=== PATIENT | male | born 1985 | race Caucasian/White ===

== ENCOUNTER 2020-01-10 12:27 | Emergency (ER) | payer OTHER, SELFPAY ==
[2020-01-10 12:49] VITALS: BP 129/86; PULSE 93; RESP 18; TEMP 36.2; O2SAT 98
--- NOTE | 2020-01-10 16:24 | ED.WOUNDLAC ---
HPI - Wound/Laceration General Chief Complaint: Wound/Laceration Stated Complaint: leg laceration Time Seen by Provider: 01/10/20 14:28 Source: patient Mode of arrival: ambulatory Limitations: no limitations History of Present Illness HPI narrative: Patient presents with chief complaint of laceration to the anterior aspect of his right thigh that he sustained via a tree branch while working. He states that he bleeding minimally and is not very painful. Patient states that he does not want sutures. Patient states that he has had a Tdap within the last 5 years. Patient denies any changes to range of motion or any other injuries. Related Data Home Medications Medication Instructions Recorded Confirmed No Home Medications 01/10/20 01/10/20 Allergies Allergy/AdvReac Type Severity Reaction Status Date / Time codeine Allergy Rash Verified 01/10/20 14:30 Sulfa (Sulfonamide Allergy Rash Verified 01/10/20 14:30 Antibiotics) Review of Systems Review of Systems: Narrative: CONSTITUTIONAL: Denies fever, chills, or sweats. EYES: Denies visual changes, redness, or discharge. ENT: Denies rhinorrhea, congestion, sore throat, or otalgia. CARDIOVASCULAR: Denies chest pain, palpitations, or edema. RESPIRATORY: Denies cough or dyspnea. GASTROINTESTINAL: Denies abdominal pain, nausea, vomiting, or diarrhea. GENITOURINARY: Denies dysuria or hematuria. SKIN: Reports laceration denies rash or itching. MUSCULOSKELETAL: Denies back pain, joint pain, or myalgia. NEUROLOGIC: Denies headache, numbness, dizziness, or weakness. PSYCHIATRIC: Denies anxiety or depression. Exam Narrative: Exam Narrative: GENERAL: Well-appearing, well-nourished, and in no acute distress. HEAD: Normocephalic, atraumatic. EYES: PERRLA and EOMI. NECK: Supple. No adenopathy or masses. CHEST: Clear to auscultation. No respiratory distress. No wheezes rales or rhonchi HEART: Regular rate and rhythm. Normal peripheral pulses. EXTREMITIES: No foreign bodies noted. normal range of motion. No edema. SKIN: 2 cm nonbleeding Laceration to the aspect of right thigh. Warm, dry, no rash. NEURO: No focal deficits. Alert and oriented x3. PSYCH: Normal mood and affect. Course Vital Signs Vital signs: Vital Signs Temperature 97.2 F L 01/10/20 12:49 Pulse Rate 93 01/10/20 12:49 Respiratory Rate 18 01/10/20 12:49 Blood Pressure 129/86 01/10/20 12:49 Pulse Oximetry 98 01/10/20 12:49 Temperature 97.2 F L 01/10/20 12:49 Pulse Rate 93 01/10/20 12:49 Respiratory Rate 18 01/10/20 12:49 Blood Pressure 129/86 01/10/20 12:49 Pulse Oximetry 98 01/10/20 12:49 Procedures Laceration Laceration 1: Site: lower extremity Side (If applicable): right Size (cm): 2 Description: linear Depth: simple, single layer Pre-repair: irrigated extensively ====== Skin Level ====== Skin layer closed with: dermabond and steri strips ====== Subcutaneous Layer ====== ====== Muscle Layer ====== ====== Tendon Layer ====== Dressing: patient refused sutures despite recommendation. Used steristrips and dermabond to approximate and stressed that patient avoid putting tension on the wound to avoid gapping. wound care instructions given. Discharge Plan Discharge Clinical Impression: Laceration Patient Disposition: Home, Self-Care Condition: Improved Instructions: Antibiotic Form, Laceration (ED), Skin Adhesive Care (ED) Additional Instructions: Keep area clean. Avoid putting tension on the wound site. Follow-up with primary care for reevaluation in approximately 1 week, sooner if any signs of infection present or you have any questions or concerns. Return to emergency department if you have any emergent symptoms. Prescriptions: No Action No Home Medications RF: 0 Follow-up/Referrals: PHYSICIAN,CHIEF CONTROLLER TOWER [Primary Care Provider] - Stand Alone Forms: Work/[employer]
[2020-01-10 17:01] VITALS: BP 130/84; PULSE 92; RESP 18; O2SAT 98
== END 2020-01-10 17:03 | disposition home or self-care (01) ==
PROVIDERS: Emergency Provider Emergency Medicine; Referring Provider Internal Medicine
DX: S71.111A Laceration without foreign body, right thigh, initial encounter (principal); W26.8XXA Contact with other sharp object(s), not elsewhere classified, initial encounter
CPT/HCPCS: 12001; 99282

== ENCOUNTER → 2020-05-11 02:24 | Outpatient (CLI) | payer BC, SELFPAY ==
[2020-05-11 19:28] LABS: SARS-CoV-2 RNA PCR Negative
== END ==
PROVIDERS: Visit Provider Surgery
DX: Z01.812 Encounter for preprocedural laboratory examination (principal); Z20.822 Contact with and (suspected) exposure to COVID-19
CPT/HCPCS: C9803; U0003; U0005

== ENCOUNTER 2020-05-14 02:08 | Day surgery (SDC) | payer BC, SELFPAY ==
[2020-05-02 11:14] VITALS: BMI 28.1
[2020-05-14 12:25] VITALS: BMI 28.7
[2020-05-14] MEDS: LACTATED RINGERS 1,000 ML 150 ML IV CONT (12:36)
--- NOTE | 2020-05-14 13:11 | WPDANESEPPF ---
Anes - Initial Pre Proc Eval Procedure: Operation Date: 05/14/20 14:00 Proposed Procedures p Esophagogastroduodenoscopy - Jesse Amaya DO Date/Time: 05/14/20 13:11 Surgeon: Jesse Amaya DO Pre Op Diagnosis: nausea, heartburn Patient Data Age: 34 Gender: M Height: 5 ft 8 in Weight: 85.6 kg Allergies Allergy/AdvReac Type Severity Reaction Status Date / Time codeine Allergy Intermediate Rash Verified 05/14/20 12:24 Sulfa (Sulfonamide Allergy Intermediate Rash Verified 05/14/20 12:24 Antibiotics) Home Medications Medication Instructions Recorded Confirmed Type No Home Medications 01/10/20 05/14/20 History Patient hx anesthesia problems: none Family hx anesthesia problems: none PMFSH Past Medical History Medical History (Updated 05/14/20 @ 13:08 by Mario Pugh MD) Epigastric abdominal pain GERD (gastroesophageal reflux disease) Surgical History Surgical History History of colonoscopy Family History Family History Grandparent Cancer Social History Social History Smoking status: Never smoker Alcohol intake: never Substance use: never Substance use type: does not use Living arrangements: with family Additional occupation/education comments: [employer] Gender identity (if verbalized by the patient): Male Spiritual care concerns: No Anes - Eval Final PreProcedure Day of Procedure 05/14/20 13:11 Patient weight: normal Heart: regular rate and rhythm Lungs: clear to auscultation Airway: Mallampati scale class II Neurological: alert and oriented Last oral intake: >/= 8 hours ASA classification: II Emergent: no Anesthetic plan: proceed Anesthesia type and monitoring: general GIVS and standard monitoring Informed Consent: The patient's anesthetic plan and its attendant risks and benefits were discussed with the patient/family/POA. Questions were solicited and answers provided to the satisfaction of the patient/family/POA.
--- NOTE | 2020-05-14 13:29 | WPDHPUPDATE1 ---
History and Physical Update Update Date/Time: 05/14/20 13:29 History and Physical has been reviewed, including an updated exam of the patient. There are NO changes in the patient's condition. Risks, benefits, and alternatives have been discussed and questions answered. Patient agrees to proceed with procedure.
[2020-05-14 13:49] VITALS: BP 97/51; PULSE 79; RESP 21; O2SAT 97
[2020-05-14 13:59] VITALS: BP 98/73; PULSE 72; RESP 19; O2SAT 96
[2020-05-14 14:09] VITALS: BP 108/81; PULSE 70; RESP 19; O2SAT 98
== END 2020-05-14 14:20 | disposition home or self-care (01) ==
PROVIDERS: Visit Provider Surgery
PROC: 0DJ08ZZ Inspection of Upper Intestinal Tract, Via Natural or Artificial Opening Endoscopic (ICD-10-PCS; CPT 43235; principal; 2020-05-14 14:00)
DX: K20.90 Esophagitis, unspecified without bleeding (principal); K25.3 Acute gastric ulcer without hemorrhage or perforation; K29.50 Unspecified chronic gastritis without bleeding; R11.0 Nausea; K62.89 Other specified diseases of anus and rectum
CPT/HCPCS: 43239; 87081; 88305; J2001; J2704; J7120

== ENCOUNTER 2022-12-29 06:56 | Emergency (ER) | payer BC, SELFPAY ==
--- NOTE | ~2022-12-29 | CT_ITS ---
CT of the Abdomen and Pelvis: Indication: Abdominal pain Technique: 2.5 mm axial scans were obtained through the abdomen and pelvis following intravenous adm inistration of 100 cc of Omnipaque 350. Dose reduction technique was used on this scan by utilizing a utomated exposure control and iterative reconstruction technique. The dose-length product (DLP) was 5 77.26 mGy-cm. Findings: Scans through the lung bases are unremarkable. The liver, spleen, pancreas, gallbladder, adrenals and kidneys are within normal limits. No evidence of aortic aneurysm. No lymphadenopathy. There is wall thickening of the mid sigmoid colon with inflammatory change centered around a divertic ulum, consistent with acute diverticulitis. No abscess or definite free air. No bowel obstruction. Sm all fat-containing umbilical hernia present. Normal appendix. Images through the pelvis were performed. Urinary bladder unremarkable. Prostate gland and seminal ve sicles are unremarkable. No ascites. Impression: Acute sigmoid diverticulitis, as detailed above. No definite abscess or free air. Small fat-containing umbilical hernia. Reviewed, dictated and finalized at location . [employer] Impression: Acute sigmoid diverticulitis, as detailed above. No definite abscess or free ai r. Small fat-containing umbilical hernia.
[2022-12-29 07:17] VITALS: BP 122/79; PULSE 90; RESP 16; O2SAT 97
--- NOTE | 2022-12-29 07:25 | ED.ABDPAIN ---
HPI - Abdominal Pain General Chief Complaint: Abdominal Pain Stated Complaint: Lower abd pain Time Seen by Provider: 12/29/22 07:09 History of Present Illness HPI narrative: Patient is a 37-year-old male who presents ER with left lower quadrant abdominal pain ongoing for the last 3 days. Aching in nature. Feels like he has to have a bowel movement but has not been able to. Mild nausea with one mucus-like emesis. He began having fevers last night. Has not had symptoms like this previously. No urinary symptoms. No alleviating factors. Related Data Allergies Allergy/AdvReac Type Severity Reaction Status Date / Time codeine Allergy Intermediate Rash Verified 12/29/22 07:42 Sulfa (Sulfonamide Allergy Intermediate Rash Verified 12/29/22 07:42 Antibiotics) Review of Systems Review of Systems: All systems reviewed & are unremarkable except as noted in HPI and below Constitutional: Constitutional: Denies chills, Denies fatigue and Reports fever(s) Cardiovascular: Cardiovascular: Reports no additional cardiovascular complaints Respiratory: Respiratory: Reports no additional respiratory complaints Gastrointestinal: Gastrointestinal: Reports abdominal pain, Reports constipation, Denies diarrhea, Reports nausea and Reports vomiting Genitourinary: Genitourinary: Reports no additional male genitourinary complaints PMFSH Past Medical History Medical History Allergies Epigastric abdominal pain GERD (gastroesophageal reflux disease) History of stomach ulcers Surgical History Surgical History History of colonoscopy Family History Family History Grandparent Cancer Diabetes mellitus Hypertension Heart disease Father Alcoholism Hypertension Heart disease Depression Social History Social History Smoking status: Never smoker Alcohol intake: never Substance use: never Substance use type: does not use Living arrangements: with family Occupation/Education: occupation Additional occupation/education comments: [employer] Gender identity (if verbalized by the patient): Male Spiritual care concerns: No Exam Narrative: GENERAL: Well-appearing, well-nourished, and in no acute distress. HEAD: Normocephalic, atraumatic. ENT: Mucous membranes moist. CHEST: Clear to auscultation. No respiratory distress. HEART: Regular rate and rhythm. Normal peripheral pulses. ABDOMEN: Soft, tender palpation left lower quadrant without guarding, nondistended, normal active bowel sounds. EXTREMITIES: Normal range of motion. No edema. SKIN: Warm, dry, no rash. NEURO: Alert and oriented x3. PSYCH: Normal mood and affect. Course Course Emergency Course: Patient resting comfortably. Informed of results. Discharge home with oral antibiotics, pain control, and antinausea medication. Vital Signs Vital signs: Vital Signs Pulse Rate 90 12/29/22 07:17 Respiratory Rate 16 12/29/22 07:17 Blood Pressure 122/79 12/29/22 07:17 Pulse Oximetry 97 12/29/22 07:17 Pulse Rate 89 12/29/22 09:09 Respiratory Rate 23 H 12/29/22 09:09 Blood Pressure 104/79 12/29/22 09:09 Pulse Oximetry 96 12/29/22 09:09 MDM - Abdominal Pain Lab Data 12/29/22 07:19 12/29/22 07:19 Labs: Lab Results 12/29/22 12/29/22 Range/Units 07:19 07:40 WBC 11.2 H (4.5-10.0) K/mm3 RBC 5.10 (4.6-6.20) M/mm3 Hgb 14.6 (14.0-18.0) g/dL Hct 42.3 (42.0-52.0) % MCV 82.9 (80-100) fl MCH 28.6 (26-34) pg MCHC 34.5 (32-36) g/dl RDW 12.8 (11.5-14.5) % Plt Count 274 (150-375) k/mm3 MPV 9.4 (7.4-10.4) fl Immature Gran % (Auto) 0.3 (0-0.5) % Neut % (Auto) 79.3 H (45.5-73.1) % Lymph % (Auto) 11.5 L (18.3-44.2) % [place] % (Aut
[2022-12-29 07:26] LABS: Basophils Percent Auto 0.2 % (0.2-1.2); Eosinophils Absolute Auto 0.1 K/mm3 (0-0.3); Eosinophils Percent Auto 0.8 % (0-4.4); Hematocrit 42.3 % (42.0-52.0); Hemoglobin 14.6 g/dL (14.0-18.0); Immature Granulocyte Absolute 0.03 K/mm3 (0.00-0.031); Immature Granulocyte Percent A 0.3 % (0-0.5); Lymphocytes Absolute Auto 1.29 K/mm3 (0.9-3.2); Lymphocytes Percent Auto 11.5 % (18.3-44.2); Mean Corpuscular HGB Conc 34.5 g/dl (32-36); Mean Corpuscular Hemoglobin 28.6 pg (26-34); Mean Corpuscular Volume 82.9 fl (80-100); Mean Platelet Volume 9.4 fl (7.4-10.4); Monocytes Absolute Auto 0.9 K/mm3 (0.1-0.6); Monocytes Percent Auto 7.9 % (2.6-8.5); Neutrophils Absolute Auto 8.9 K/mm3 (1.3-6.7); Neutrophils Percent Auto 79.3 % (45.5-73.1); Platelet Count Result 274 k/mm3 (150-375); Red Cell Distribution Width 12.8 % (11.5-14.5); White Blood Count 11.2 K/mm3 (4.5-10.0)
[2022-12-29 07:35] LABS: Alanine Aminotransferase 40 U/L (6-50); Albumin Level 4.6 g/dL (3.5-5.1); Alkaline Phosphatase 99 U/L (38-126); Anion Gap 7 mmol/L (8-16); Aspartate Amino Transferase 32 U/L (17-59); Bilirubin,Total 1.3 mg/dL (0.2-1.3); Blood Urea Nitrogen 13 mg/dL (9-20); Calcium 9.3 mg/dL (8.4-10.2); Carbon Dioxide 28 mmol/L (22-30); Chloride 102 mmol/L (98-107); Estimated CRCL calculation 97 ml/min; Estimated Glomerular Filt Rate > 60; Glucose 108 mg/dL (65-110); Lipase 73 U/L (23-300); Potassium 3.8 mmol/L (3.4-5.0); Sodium 137 mmol/L (137-145)
[2022-12-29 07:41] VITALS: BP 119/82; PULSE 92; RESP 22; O2SAT 95
[2022-12-29 07:48] LABS: Appearance Urine Cloudy (Clear); Bacteria Urine None Seen /hpf; Bilirubin Urine 1+ (Negative); Blood Urine Trace (Negative); Color Urine Dark Yellow (Yellow); Glucose Urine UA Negative (Negative); Ketones Urine Trace mg/dL (Negative); Leukocyte Esterase Ur Trace LEU/UL (Negative); Nitrate Urine Negative (Negative); Non Pathogenic Casts 0-2; Protein Urine 1+ mg/dL (Negative); Specific Grav Ur 1.025 (1.001-1.035); Squamous Epithelial Cell Urine None seen /hpf (Few); WBC Urine 0-5 /hpf; pH Urine 5.5 (5.0-9.0)
[2022-12-29 07:52] LABS: Add Urine Microscopic? YES
[2022-12-29 08:33] VITALS: BP 113/81; PULSE 91; RESP 22; O2SAT 97
[2022-12-29 09:09] VITALS: BP 104/79; PULSE 89; RESP 23; O2SAT 96
[2022-12-29 09:40] VITALS: BP 109/77; PULSE 95; RESP 20; O2SAT 98
== END 2022-12-29 09:46 | disposition home or self-care (01) ==
PROVIDERS: Emergency Provider Emergency Medicine; PCP Internal Medicine
DX: K57.32 Diverticulitis of large intestine without perforation or abscess without bleeding (principal); K21.9 Gastro-esophageal reflux disease without esophagitis
CPT/HCPCS: 36415; 74177; 80053; 81001; 83690; 85025; 99284; Q9967

== ENCOUNTER 2023-06-18 11:23 | Emergency (ER) | payer BC, SELFPAY ==
[2023-06-18 11:26] VITALS: BP 128/79; PULSE 65; RESP 18; TEMP 36.6; O2SAT 98
--- NOTE | 2023-06-18 12:11 | ED.ABDPAIN ---
HPI - Abdominal Pain General Chief Complaint: Abdominal Pain Stated Complaint: diverticulitis Time Seen by Provider: 06/18/23 12:01 History of Present Illness HPI narrative: Patient is a 37-year-old male with history of diverticulitis here today with abdominal pain. He states that the abdominal pain began over the weekend about 4-5 days ago. The pain was located in his lower abdomen and mild, aching in nature. He notes he immediately was concerned that he could be having a recurrent diverticulitis flare and switched himself to clear liquid diet. Over the course of the last 4-5 days he took 2 doses of leftover Augmentin at his house. He notes the symptoms have completely resolved at this time. He contacted his PCP regarding this recent bout of symptoms and advised he come into the ER for evaluation. He denies fever, chills, nausea, vomiting, cough, congestion. He notes on day 2 of illness he had an episode of dark urine but has never experienced any dysuria, hematuria, increased urinary frequency. No prior history of UTI. He had 1 prior colonoscopy in his 20s, was diagnosed with IBS while he was in the . He is currently awaiting a repeat colonoscopy after his initial bout of diverticulitis at the end of last year. Related Data Allergies Allergy/AdvReac Type Severity Reaction Status Date / Time codeine Allergy Intermediate Rash Verified 06/18/23 11:58 Sulfa (Sulfonamide Allergy Intermediate Rash Verified 06/18/23 11:58 Antibiotics) Review of Systems Review of Systems: All systems reviewed & are unremarkable except as noted in HPI and below PMFSH Past Medical History Medical History Allergies Epigastric abdominal pain GERD (gastroesophageal reflux disease) History of stomach ulcers Surgical History Surgical History History of colonoscopy Family History Family History Grandparent Cancer Diabetes mellitus Hypertension Heart disease Father Alcoholism Hypertension Heart disease Depression Social History Social History Smoking status: Never smoker Alcohol intake: never Substance use: never Substance use type: does not use Living arrangements: with family Occupation/Education: occupation Additional occupation/education comments: [employer] Gender identity (if verbalized by the patient): Male Spiritual care concerns: No Exam Narrative: GENERAL: Well-appearing, well-nourished, and in no acute distress. HEAD: Normocephalic, atraumatic. EYES: PERRLA and EOMI. ENT: Nares clear. Mucous membranes moist. NECK: Supple. CHEST: Clear to auscultation. No respiratory distress. HEART: Regular rate and rhythm. Normal peripheral pulses. ABDOMEN: Soft, nontender, nondistended. Benign abdominal exam. No CVA tenderness. EXTREMITIES: Normal range of motion. No edema. SKIN: Warm, dry, no rash. NEURO: No focal deficits. Alert and oriented x3. PSYCH: Normal mood and affect. Course Course Emergency Course: Chart review performed. Patient here with abdominal pain since Thursday. History of prior diverticulitis, felt similar, started taking amoxicillin he had left and home and a clear liquid diet. Noted improving symptoms however PCP recommended he get checked out. Triage vitals normal. A CT scan on 12/29/22 showed acute sigmoid diverticulitis and he was discharged on Augmentin, Zofran and [place]. Patient seen evaluated, nontoxic appearing, no symptoms. WBC of 4.6, electrolytes within normal limits. Patient is having no urinary symptoms. He has no abdominal pain. At this point I think we can forego a urinalysis. Extensive discussion with patient regarding options for further workup. Given lack of pain and any symptom as wall as lack of evidence of infection on his lab work we dis
[2023-06-18 12:17] LABS: Basophils Percent Auto 0.4 % (0.2-1.2); Eosinophils Absolute Auto 0.2 K/mm3 (0-0.3); Eosinophils Percent Auto 4.6 % (0-4.4); Hematocrit 45.5 % (42.0-52.0); Hemoglobin 15.7 g/dL (14.0-18.0); Immature Granulocyte Absolute 0.02 K/mm3 (0.00-0.031); Immature Granulocyte Percent A 0.4 % (0-0.5); Lymphocytes Absolute Auto 1.35 K/mm3 (0.9-3.2); Lymphocytes Percent Auto 29.4 % (18.3-44.2); Mean Corpuscular HGB Conc 34.5 g/dl (32-36); Mean Corpuscular Hemoglobin 28.7 pg (26-34); Mean Corpuscular Volume 83.2 fl (80-100); Mean Platelet Volume 9.4 fl (7.4-10.4); Monocytes Absolute Auto 0.3 K/mm3 (0.1-0.6); Monocytes Percent Auto 6.3 % (2.6-8.5); Neutrophils Absolute Auto 2.7 K/mm3 (1.3-6.7); Neutrophils Percent Auto 58.9 % (45.5-73.1); Platelet Count Result 284 k/mm3 (150-375); Red Blood Count 5.47 M/mm3 (4.6-6.20); Red Cell Distribution Width 12.6 % (11.5-14.5); White Blood Count 4.6 K/mm3 (4.5-10.0)
[2023-06-18 12:25] LABS: Alanine Aminotransferase 40 U/L (6-50); Albumin Level 5.1 g/dL (3.5-5.1); Alkaline Phosphatase 79 U/L (38-126); Anion Gap 7 mmol/L (4-12); Aspartate Amino Transferase 33 U/L (17-59); Bilirubin,Total 0.8 mg/dL (0.2-1.3); Blood Urea Nitrogen 13 mg/dL (9-20); Calcium 9.7 mg/dL (8.4-10.2); Carbon Dioxide 29 mmol/L (22-30); Chloride 103 mmol/L (98-107); Estimated CRCL calculation 109 ml/min; Estimated Glomerular Filt Rate > 60; Glucose 96 mg/dL (65-110); Lipase 107 U/L (23-300); Potassium 4.3 mmol/L (3.4-5.0); Sodium 139 mmol/L (137-145)
[2023-06-18 12:30] VITALS: BP 105/80; PULSE 60; RESP 17; O2SAT 97
[2023-06-18 13:32] VITALS: BP 101/82; PULSE 65; RESP 17; TEMP 36.5; O2SAT 100
== END 2023-06-18 13:15 | disposition home or self-care (01) ==
PROVIDERS: Student in an Organized Health Care Education/Training Program; Emergency Provider Student in an Organized Health Care Education/Training Program; PCP Internal Medicine
DX: R10.30 Lower abdominal pain, unspecified (principal); K21.9 Gastro-esophageal reflux disease without esophagitis
CPT/HCPCS: 36415; 80053; 83690; 85025; 99283

== ENCOUNTER 2023-09-09 05:25 | Emergency (ER) | payer OTHER, SELFPAY ==
--- NOTE | ~2023-09-09 | CT_ITS ---
CT of the Abdomen and Pelvis: Indication: Abdominal pain Technique: 2.5 mm axial scans were obtained through the abdomen and pelvis following intravenous adm inistration of 100 cc of Omnipaque 350. Dose reduction technique was used on this scan by utilizing a utomated exposure control and iterative reconstruction technique. The dose-length product (DLP) was 7 55.43 mGy-cm. COMPARISON: 12/29/2022 Findings: Scans through the lung bases are unremarkable. The liver, spleen, pancreas, gallbladder, adrenals and kidneys are within normal limits. No evidence of aortic aneurysm. No lymphadenopathy. There is wall thickening and pericolonic inflammatory change at the proximal sigmoid: Compatible with acute diverticulitis. No abscess or definite free air is seen. No bowel obstruction.. Small fat-cont aining umbilical hernia noted. Images through the pelvis were performed. Urinary bladder unremarkable. No pelvic mass seen. No ascit es. Impression: Acute sigmoid diverticulitis, as detailed above. Small fat-containing umbilical hernia. Reviewed, dictated and finalized at location . Impression: Acute sigmoid diverticulitis, as detailed above. Small fat-containing umbilical hernia.
[2023-09-09 05:26] VITALS: BP 132/83; PULSE 106; RESP 15; TEMP 37; O2SAT 99
[2023-09-09 05:53] VITALS: BP 128/91; PULSE 95; RESP 17; O2SAT 97
[2023-09-09 06:06] LABS: Basophils Percent Auto 0.2 % (0.2-1.2); Eosinophils Absolute Auto 0.1 K/mm3 (0-0.3); Eosinophils Percent Auto 0.8 % (0-4.4); Hematocrit 40.2 % (42.0-52.0); Hemoglobin 14.3 g/dL (14.0-18.0); Immature Granulocyte Absolute 0.04 K/mm3 (0.00-0.031); Immature Granulocyte Percent A 0.4 % (0-0.5); Lymphocytes Absolute Auto 1.12 K/mm3 (0.9-3.2); Lymphocytes Percent Auto 10.2 % (18.3-44.2); Mean Corpuscular HGB Conc 35.6 g/dl (32-36); Mean Corpuscular Volume 81.5 fl (80-100); Mean Platelet Volume 9.5 fl (7.4-10.4); Monocytes Absolute Auto 0.9 K/mm3 (0.1-0.6); Monocytes Percent Auto 8.5 % (2.6-8.5); Neutrophils Absolute Auto 8.7 K/mm3 (1.3-6.7); Neutrophils Percent Auto 79.9 % (45.5-73.1); Platelet Count Result 259 k/mm3 (150-375); Red Blood Count 4.93 M/mm3 (4.6-6.20); Red Cell Distribution Width 12.5 % (11.5-14.5); White Blood Count 10.9 K/mm3 (4.5-10.0)
[2023-09-09 06:15] LABS: Alanine Aminotransferase 40 U/L (6-50); Albumin Level 4.8 g/dL (3.5-5.1); Alkaline Phosphatase 101 U/L (38-126); Anion Gap 11 mmol/L (4-12); Aspartate Amino Transferase 28 U/L (17-59); Bilirubin,Total 1.6 mg/dL (0.2-1.3); Blood Urea Nitrogen 12 mg/dL (9-20); Calcium 9.4 mg/dL (8.4-10.2); Carbon Dioxide 26 mmol/L (22-30); Chloride 100 mmol/L (98-107); Estimated CRCL calculation 94 ml/min; Estimated Glomerular Filt Rate > 60; Glucose 113 mg/dL (65-110); Lipase 73 U/L (23-300); Potassium 3.8 mmol/L (3.4-5.0); Sodium 137 mmol/L (137-145)
[2023-09-09 07:04] LABS: Appearance Urine Clear (Clear); Bacteria Urine None Seen /hpf; Bilirubin Urine Negative (Negative); Blood Urine Negative (Negative); Color Urine Dark Yellow (Yellow); Glucose Urine UA Negative (Negative); Ketones Urine Negative (Negative); Leukocyte Esterase Ur Negative LEU/UL (Negative); Nitrate Urine Negative (Negative); Non Pathogenic Casts 0-2; Protein Urine Trace mg/dL (Negative); RBC Urine 0-2 /hpf (0-2); Specific Grav Ur 1.024 (1.001-1.035); Squamous Epithelial Cell Urine None Seen /hpf (Few); Urobilinogen Urine 0.2 mg/dL (<2.0); WBC Urine 0-5 /hpf (0-3); pH Urine 5.5 (5.0-9.0)
[2023-09-09 07:16] LABS: Add Urine Microscopic? YES
[2023-09-09] MEDS: SODIUM CHLORIDE 0.9% IV 2,000 ML 999 ML IV CONT (08:08)
[2023-09-09] MEDS: ONDANSETRON INJ 4 MG/2 ML VIAL IV PUSH (08:08)
[2023-09-09] MEDS: KETOROLAC 15 MG/ML VIAL (*BKC) IV PUSH (08:08)
[2023-09-09 09:43] VITALS: BP 105/73; PULSE 78; RESP 18; O2SAT 95
--- NOTE | 2023-09-09 09:43 | ED.GENADULT ---
HPI - General Adult General Chief complaint: Abdominal Pain Stated complaint: abd pain Time Seen by Provider: 09/09/23 06:42 History of Present Illness HPI narrative: This is a 29-year-old male with a history of diverticulitis presenting for abdominal pain. Pain started 1 day ago and is in the left lower quadrant. It is achy and sharp. Is severe in intensity and waxes and wanes throughout the day. Says this feels similar to prior episodes of diverticulitis. No exacerbating alleviating factors. He has had nausea but no vomiting. Denies fevers chills chest pain difficulty breathing or urinary symptoms. Last bowel movement was yesterday and was thinner in caliber. Patient has a history of IBS. Related Data Allergies Allergy/AdvReac Type Severity Reaction Status Date / Time codeine Allergy Intermediate Rash Verified 06/18/23 11:58 Sulfa (Sulfonamide Allergy Intermediate Rash Verified 06/18/23 11:58 Antibiotics) PMFSH Past Medical History Medical History Allergies Epigastric abdominal pain GERD (gastroesophageal reflux disease) History of stomach ulcers Surgical History Surgical History History of colonoscopy Family History Family History Grandparent Cancer Diabetes mellitus Hypertension Heart disease Father Alcoholism Hypertension Heart disease Depression Social History Social History Smoking status: Never smoker Alcohol intake: never Substance use: never Substance use type: does not use Living arrangements: with family Occupation/Education: occupation Additional occupation/education comments: [employer] Gender identity (if verbalized by the patient): Male Spiritual care concerns: No Exam Narrative: APPEARANCE: No apparent distress. Head: atraumatic. EYES: EOMI, NOSE: Atraumatic NECK: Trachea midline RESPIRATORY: No increased rate of breathing CARDIOVASCULAR: RRR, ABDOMINAL: Tender left lower quadrant, no rigidity or voluntary guarding MUSCULOSKELETAl: No obvious deformities NEURO: Alert. Moving 4/4 extremities SKIN:: Warm, dry. Normal color PSYCHIATRIC: Normal affect Course Vital Signs Vital signs: Vital Signs Temperature 98.6 F 09/09/23 05:26 Pulse Rate 106 H 09/09/23 05:26 Respiratory Rate 15 09/09/23 05:26 Blood Pressure 132/83 09/09/23 05:26 Pulse Oximetry 99 09/09/23 05:26 Oxygen Delivery Room Air 09/09/23 05:26 Temperature 98.6 F 09/09/23 05:26 Pulse Rate 95 09/09/23 05:53 Respiratory Rate 17 09/09/23 05:53 Blood Pressure 128/91 H 09/09/23 05:53 Pulse Oximetry 97 09/09/23 05:53 Oxygen Delivery Room Air 09/09/23 05:26 Medical Decision Making MDM Narrative Medical decision making narrative: -Course: 29-year-old male presenting with left lower quadrant pain. CT showed acute uncomplicated diverticulitis. Patient has stable vital signs. White count 10.9. Patient has good candidate for outpatient management. He will be discharged on Augmentin, pain control and antiemetics. Given primary care follow-up return precautions. -DDX includes but is not limited to: Diverticulitis, colitis, gastroenteritis -Co-morbidities complicating care: History of diverticulitis -Independent interpretation of studies: Labs reviewed. Imaging reviewed -Interventions: 2 L normal saline, 15 mg Toradol, 4 mg Zofran -Shared decision making / Disposition: Discharge -RX Augmentin, Zofran, Motrin, Tylenol Vital Signs Vital Signs: Vital Signs Temperature 98.6 F 09/09/23 05:26 Pulse Rate 106 H 09/09/23 05:26 Respiratory Rate 15 09/09/23 05:26 Blood Pressure 132/83 09/09/23 05:26 Pulse Oximetry 99 09/09/23 05:26 Oxygen Delivery Room Air 09/09/23 05:26 Temperature 98.6 F 09/09/23 05:26
== END 2023-09-09 09:56 | disposition home or self-care (01) ==
PROVIDERS: Emergency Medicine; Emergency Provider Emergency Medicine; PCP Internal Medicine
DX: K57.32 Diverticulitis of large intestine without perforation or abscess without bleeding (principal); K21.9 Gastro-esophageal reflux disease without esophagitis; K42.9 Umbilical hernia without obstruction or gangrene
CPT/HCPCS: 36415; 74177; 80053; 81001; 83690; 85025; 96361; 96374; 96375; 99284; J1885; J2405; J7030; Q9967

== ENCOUNTER 2024-11-07 07:52 | Outpatient (CLI) | payer OTHER, SELFPAY ==
--- NOTE | ~2024-11-07 | NM_ITS ---
EXAMINATION: [id number] DATE: 11/07/2024 12:17 INDICATION: Upper abdominal pain COMPARISON: None. TECHNIQUE: 4.9 mCi Tc-99m mebrofenin (Choletec) was administered intravenously. Scintigraphic images of the abdomen were obtained for one hour. 2 mcg sincalide (Kinevac) was administered by slow intravenous infusion, and imaging was continued for 30 minutes. Gallbladder ejection fraction was calculated by the technologist. FINDINGS: There is normal clearance of radiotracer from the blood pool. There is homogeneous tracer uptake by the liver. Activity progresses to the gallbladder and bowel. The gallbladder ejection fraction (GBEF) is 93% (normal 10-90%, but most patient with gallbladder dysfunction have GBEF < 35% which does overlap with the normal range). IMPRESSION: 1. 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 IMPRESSION: 1. 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
--- OUTSIDE RECORDS SUMMARY | 2024-11-07 08:17 | XMS_ITS | Clinical Summary ---
Author Organization [facility] Address [address] Attn: Epic Prelude ADT [place]ATH[place] [id number] Care Team Providers Care Associate Director Finance Name Role Phone Unavailable Primary Care Provider Unavailabl e Allergies Active Allergy Reactions Criticality Noted Date Comments Codeine Rash Low 07/02/2016 Sulfa (Sulfonamide Antibiotics) Rash Low 06/23 Medications fluticasone propionate (FLONASE) 50 mcg/spray [place], Suspension nasal inhaler Administer 2 Sprays in each nostril daily. 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 [employer] Gender Identity Not on file Sexual Orientation Not on file Last Filed Vital Signs Vital Sign Reading Time Taken Comments Blood Pressure 132/85 07/02/2016 8:23 PM CDT Pulse - - Temperature 37.2 C (98.9 F) 07/02/2016 8:23 PM CDT Respiratory Rate 20 07/02/2016 11:04 PM CDT Oxygen Saturation - - Inhaled Oxygen Concentration - - Weight 81.6 kg (180 lb) 07/02/2016 8:23 PM CDT Height 172.7 cm (5' 8) 07/02/2016 8:23 PM CDT Body Mass Index 27.37 07/02/2016 8:23 PM CDT Plan of Treatment Health Maintenance Due Date Last Done Comments DTAP/TDAP/TD VACCINES (1 - Tdap) 09/18/2003 HEPATITIS B VACCINES (1 of 3 - 19+ 3-dose series) 08/24 HPV VACCINES (1 - 3-dose SCDM series) 09/18/2011 INFLUENZA VACCINE (#1) 2024
--- OUTSIDE RECORDS SUMMARY | 2024-11-07 08:17 | XMS_ITS | Clinical Summary ---
Author Organization [facility] Address [address] [place] [address] Care Team Providers Care Senior Database Programmer Name Role Phone Laurence Forte MD Primary Care Provide r Allergies Active Allergy Reactions Criticality Noted Date Comments Codeine Rash Medium 07/02/2016 Sulfa (Sulfonamide Antibiotics) Rash,Anaphylaxis High 12/07/1989 Medications cetirizine (ZyrTEC) 10 mg tablet cetirizine 10 mg tablet TAKE 1 TABLET BY MOUTH EVERY DAY NEEDED Active fluticasone propionate (FLONASE) 50 mcg/actuation nasal spray fluticasone propionate 50 mcg/actuation nasal spray,suspension INHALE 1 SPRAY IN EACH NOSTRIL EVERY DAY 07/03/19 17 Active meloxicam (MOBIC) 15 mg tablet meloxicam 15 mg tablet TAKE 1 TABLET BY MOUTH EVERY DAY WITH FOOD NEEDED Active omeprazole (PriLOSEC) 20 mg capsule omeprazole 20 mg capsule,delayed release TAKE 1 CAPSULE BY MOUTH EVERY DAY NEEDED Active rosuvastatin (CRESTOR) 40 mg tablet rosuvastatin 40 mg tablet TAKE 1 TABLET BY MOUTH EVERY DAY Active topiramate (TOPAMAX) 50 mg tabletIndications: Chronic migraine without aura without status migrainosus, not intractable Take half tablet (25 mg) po twice a day for one week, then one tablet po twice a day 60 tablet 3 07/10/19 22 Active Additional Information Patient not taking.Reported on 01/01/2023 amoxicillin-clavul anate (AUGMENTIN) 875-125 mg per tablet Take 1 tablet by mouth every 12 (twelve) hours 12/30/19 23 Active HYDROcodone-acetam inophen (NORCO) 5-325 mg per tablet Take by mouth every 6 (six) hours as needed 12/30/19 23 Active ondansetron ODT (ZOFRAN-ODT) 4 mg disintegrating tablet DISSOLVE 1 TABLET ON THE TONGUE EVERY 6 HOURS NEEDED FOR NAUSEA OR VOMITING 12/30/19 Active amoxicillin 500 mg capsule TAKE 1 CAPSULE BY MOUTH THREE TIMES DAILY FOR 5 DAYS 01/06/20 23 Active propranolol LA (INDERAL LA) 60 mg 24 hr capsule Take 1 capsule (60 mg total) by mouth daily 90 capsule 3 04/02/19 24 Active Active Problems Problem Noted Date Diagnosed Date Migraine without aura and responsive to treatmen t 04/02/2023 Acute sinusitis 04/02/2023 Arthralgia of shoulder 04/02/2023 Migraine headache 04/02/2023 Visual impairment 04/02/2023 Non-neoplastic nevus 04/02/2023 Vitiligo 04/02/2023 Allergy 01/01/2023 Headache 01/01/2023 Overview (01/01/2023): headache: 27 y/o male with h/o migraines and cervicalgia p/w headache refractory to excedrin. Do not suspect SAH due to gradual onset, lack of maximal intensity at onset, similairity to prior HAs, and normal neurologic exam. Pt has no fever or meningismus concerning for meningitis. Pt given Normal Saline, Benadryl 50 mg IV, Reglan 10 mg IV and morphine 4 mg IV. Pt signed out to Dr. Rogers pending reasssement. Sue - Assumed care at 0700. THURMAN resolved. Will DC w/ precautions. Medical History Medical History Date Comments Migraine Family History Medical History Relation Name Comments Alcohol abuse Father Kilo COPD Father Kilo Depression Father Kilo Diabetes Maternal Grandfather Babar Cancer Paternal Grandfather Kilo Heart attack Paternal Grandfather Kilo Heart attack Paternal Grandmother Wendie Hypertension Paternal Grandmother Wendie Relation Name Status Comments Father Kilo Maternal Grandfather Babar Paternal Grandfather Kilo Paternal Grandmother Wendie Social History Tobacco Use Types Packs/Day Years Used Date Smoking Tobacco: Never Smokeless Tobacco: Never Tobacco Cessation:Counseling Given: Not Answered Personal Safety Answer Date Recorded Getting School Help Needed Not on file 03/21 Sex and Gender Information Value Date Recorded Sex Assigned at Not on file Legal Sex Male 11:37 AM CDT Gender Identity Male 03/21/2023 10:02 AM WORKING SECOND HAND Sexual Orientation Straight 03/21/2023 10 :02 AM WORKING SECOND HAND Obstetrics History Last Filed Vital Signs Vital Sign Reading Time Taken Comments Blood Pressure 102/60 04/02/2023 11:28 AM WORKING SECOND HAND Pulse 66 04/02/2023 11:28 AM WORKING SECOND HAND Temperature - - Respiratory Rate - - Oxygen Saturation 99% 04/02/2023 11:28 AM WORKING SECOND HAND Inhaled Oxygen Concentration - - Weight 88.5 kg (195 lb) 04/02/2023 11:28 AM WORKING SECOND HAND Height 175.3 cm (5' 9) 04/02/2023 11:28 AM WORKING SECOND HAND Body Mass Index 28.8 04/02/2023 11:28 AM WORKING SECOND HAND Plan of Treatment Health Maintenance Due Date Last Done Comments Depression Screening 1984 Hepatitis C Screening 1984 Regular Well Visit/Exam 18-64 2002 HPV Vaccines (1 - 3-dose SCDM series) 09/18/2011 DTaP/Tdap/Td Vaccine (3 - Td or Tdap) 02/23/2019 02/23/2009, 11/18/2006 Covid-19 Vaccine (2 - season) 2024 04/27/2020 Influenza Vaccine (#1) 2024 3, 01/25/2012, 04/06/2011, Additional history exists Varicella Vaccines Completed 12/25/2006, 11/18/2006 Hepatitis B Screening Completed 07/08/2008 , 12/25/2006, 11/18/2006 Pneumococcal vaccine <65 Aged Out No longer eligible based on patient's age to complete this topic Insurance [facility] [employer] [place] [employer] [place] Care Teams Senior Database Programmer Relationship Specialty Start Date End Date Laurence Forte MD [address] [id number] PCP - General Internal Medicine 05/09/21
== END 2024-11-07 07:53 | disposition home or self-care (01) ==
PROVIDERS: PCP Internal Medicine; Visit Provider Surgery
DX: R10.10 Upper abdominal pain, unspecified (principal)
CPT/HCPCS: 78227; A9537; J2805

== ENCOUNTER 2024-12-12 15:47 | Outpatient (CLI) | payer OTHER, SELFPAY ==
--- OUTSIDE RECORDS SUMMARY | 2024-12-12 18:21 | XMS_ITS | Clinical Summary ---
Author Organization [facility] Address [address] [place] [address] Care Team Providers Care Gas Plant Specialist Name Role Phone Laurence Forte MD Primary [...] CDT Gender Identity Male 03/21/2023 10:02 AM PSYCHOLOGIST Sexual Orientation Straight 03/21/2023 10 :02 AM PSYCHOLOGIST Obstetrics History Last Filed Vital Signs Vital Sign Reading Time Taken Comments Blood Pressure 102/60 04/02/2023 11:28 AM PSYCHOLOGIST Pulse 66 04/02/2023 11:28 AM PSYCHOLOGIST Temperature - - Respiratory Rate - - Oxygen Saturation 99% 04/02/2023 11:28 AM PSYCHOLOGIST Inhaled Oxygen Concentration - - Weight 88.5 kg (195 lb) 04/02/2023 11:28 AM PSYCHOLOGIST Height 175.3 cm (5' 9) 04/02/2023 11:28 AM PSYCHOLOGIST Body Mass Index 28.8 04/02/2023 11:28 AM PSYCHOLOGIST Plan of Treatment Health Maintenance Due Date [...] patient's age to complete this topic Insurance [facility] Patterns ID Patterns ID Care Teams Gas Plant Specialist Relationship Specialty Start Date End Date Laurence Forte MD [address] [id number] PCP - General Internal Medicine 05/09/21
--- OUTSIDE RECORDS SUMMARY | 2024-12-12 18:21 | XMS_ITS | Clinical Summary ---
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
== END 2024-12-12 15:48 | disposition home or self-care (01) ==
PROVIDERS: PCP Internal Medicine; Visit Provider Nurse Practitioner Family
DX: K76.0 Fatty (change of) liver, not elsewhere classified (principal)
CPT/HCPCS: 36415